=== PATIENT | female | born 1945 | race Caucasian/White ===

== ENCOUNTER 2016-11-17 11:34 | Emergency (ER) | payer MEDICARE ==
[2016-11-17 12:17] VITALS: BP 121/53
--- NOTE | 2016-11-17 12:30 | UC ---
Respiratory Complaint HPI - HPI Summary HPI Summary: 3 or 4 weeks of cough. Saw her MD, got a Z-pack, it didn't help. Then went back and was told to take cough meds, but they gave her diarrhea. Still coughing. Appetite good. No recent fever. Minimal sinus congestion. Cough is dry and hacking, keeps her awake at night, makes her throat sore. No rash. - History of Current Complaint Chief Complaint: UCRespiratory Stated Complaint: COUGH,THROAT Time Seen by Provider: 11/17/16 12:20 Hx Obtained From: Patient Hx Last Menstrual Period: many years Onset/Duration: Gradual Onset, Lasting Weeks - 4 Timing: Constant Severity Initially: Mild Severity Currently: Moderate Character: Cough: Nonproductive Aggravating Factors: Recumbent Position Associated Signs And Symptoms: Positive: URI, Hoarseness. Negative: Dyspnea, Fever, Chills, Pleuritic Chest Pain, Wheezing, Hemoptysis, Nasal Congestion, Sinus Discomfort - Risk Factors Pulmonary Embolism Risk Factors: Negative Cardiac Risk Factors: Negative Pseudomonas Risk Factors: Negative Tuberculosis Risk Factors: Negative - Allergies/Home Medications Allergies/Adverse Reactions: Allergies Allergy/AdvReac Type Severity Reaction Status Date / Time Oxybutynin Allergy Rash Verified 11/17/16 12:17 Sulfamethoxazole Allergy Rash Verified 11/17/16 12:17 w/Trimethoprim [From Bactrim] PMH/Surg Hx/FS Hx/Imm Hx Endocrine History Of: Reports: Diabetes Cardiovascular History Of: Reports: Cardiac Disorders - ? [place], Hypertension Respiratory History Of: Reports: COPD, Asthma - Surgical History Surgical History: Yes Surgery Procedure, Year, and Place: HYSTERECTOMY 2009. BLADDER REPAIR X 3 AND MESH 1983, 2009 AND 2011. LEFT THUMB TENDON REPAIR - Family History Known Family History: Positive: Renal Disease - mom positive for kidney stones - Social History Occupation: Retired Lives: With Family Alcohol Use: None Substance Use Type: None Smoking Status (MU): Former Smoker Type: Cigarettes Length of Time of Smoking/Using Tobacco: 20 years Have You Smoked in the Last Year: No - Immunization History Most Recent Influenza Vaccination: 08-01-15 Review of Systems Constitutional: Negative Skin: Negative Eyes: Negative ENT: Sore Throat Respiratory: Cough Cardiovascular: Negative Gastrointestinal: Negative Genitourinary: Negative Motor: Negative Neurovascular: Negative Musculoskeletal: Negative Neurological: Negative Psychological: Negative All Other Systems Reviewed And Are Negative: Yes Physical Exam Triage Information Reviewed: Yes Appearance: Well-Appearing, No Pain Distress, Well-Nourished Vital Signs: Initial Vital Signs Temp 98.1 F 11/17/16 12:11 Pulse 71 11/17/16 12:11 Resp 20 11/17/16 12:11 BP 121/53 11/17/16 12:11 Pulse Ox 98 11/17/16 12:11 Vital Signs Reviewed: Yes Eye Exam: Normal ENT: Positive: Pharyngeal erythema - mild, Nasal congestion Respiratory Exam: Normal Respiratory: Positive: Lungs clear, Normal breath sounds, No respiratory distress, No accessory muscle use Cardiovascular Exam: Normal Musculoskeletal Exam: Normal Neurological Exam: Normal Psychological Exam: Normal Skin Exam: Normal UC Diagnostic Evaluation - Laboratory O2 Sat by Pulse Oximetry: 98 Respiratory Course/Dx - Differential Dx/Diagnosis Differential Diagnosis/HQI/PQRI: Bronchitis, Lower Resp Infection, Sinusitis Provider Diagnoses: URI Discharge - Discharge Plan Condition: Stable Disposition: HOME Prescriptions: Benzonatate CAP* [Tessalon CAP*] 100 mg PO TID PRN #20 cap PRN Reason: Cough Hydrocodone W/ Homatropine [Hydromet 5-1.5 mg/5Ml] 1 teasp PO Q6HR PRN #120 ml MDD 20ml PRN Reason: Cough Patient Education Materials: Upper Respiratory Infection (ED) Referrals: Nico Mcallister MD [Primary Care Provider] -
== END 2016-11-17 12:57 | disposition home or self-care (01) ==
LOC: UCCORT 11:34
DX: J06.9 Acute upper respiratory infection, unspecified (principal); Z87.891 Personal history of nicotine dependence; Z88.1 Allergy status to other antibiotic agents; Z88.8 Allergy status to other drugs, medicaments and biological substances
CPT/HCPCS: 99212; G0463

== ENCOUNTER 2017-06-10 10:55 | Emergency (ER) | payer MEDICARE | END 2017-06-10 13:38 | disposition left against medical advice (07) | LOC: UCCORT 10:55 | DX: N39.9 Disorder of urinary system, unspecified (principal); J34.89 Other specified disorders of nose and nasal sinuses; Z53.21 Procedure and treatment not carried out due to patient leaving prior to being seen by health care provider ==

== ENCOUNTER 2017-06-10 15:00 | Emergency (ER) | payer MEDICARE ==
[2017-06-10 16:07] VITALS: BP 111/56
--- NOTE | 2017-06-10 17:59 | UC ---
UC General HPI - HPI Summary HPI Summary: TWO WEEKS OF WORSENING SINUS PRESSURE, ON RIGHT SIDE; THREE DAYS AGO BEGAN DEVELOPING URINARY FREQUENCY, URIGENCY AND DISCOMFORT. NO FEVER. NO SOB. NO BACK PAIN. - History of Current Complaint Chief Complaint: UCGeneralIllness Stated Complaint: BLADDER,SINUS INFECTION Time Seen by Provider: 06/10/17 16:08 Hx Obtained From: Patient Hx Last Menstrual Period: many years Onset/Duration: Gradual Onset, Lasting Weeks, Worse Since - 3 DAYS Onset Severity: Mild Current Severity: Moderate Pain Intensity: 7 Associated Signs & Symptoms: Positive: Dysuria. Negative: Back Pain, Cough, Chest Pain, Dizziness, Diarrhea, Fever, Headache, Nausea, SOB, Vomiting, Wheezing, Weakness - Allergy/Home Medications Allergies/Adverse Reactions: Allergies Allergy/AdvReac Type Severity Reaction Status Date / Time Oxybutynin Allergy Rash Verified 06/10/17 16:07 Sulfamethoxazole Allergy Rash Verified 06/10/17 16:07 w/Trimethoprim [From Bactrim] PMH/Surg Hx/FS Hx/Imm Hx Previously Healthy: Yes - Surgical History Surgical History: Yes Surgery Procedure, Year, and Place: HYSTERECTOMY 2009. BLADDER REPAIR X 3 AND MESH 1983, 2009 AND 2011. LEFT THUMB TENDON REPAIR - Family History Known Family History: Positive: Renal Disease - mom positive for kidney stones - Social History Occupation: Retired Lives: With Family Alcohol Use: None Substance Use Type: None Smoking Status (MU): Former Smoker Type: Cigarettes Length of Time of Smoking/Using Tobacco: 20 years Have You Smoked in the Last Year: No - Immunization History Most Recent Influenza Vaccination: 08-01-15 Review of Systems Constitutional: Negative Skin: Negative Eyes: Negative ENT: Nasal Discharge, Sinus Congestion, Sinus Pain/Tenderness Respiratory: Negative Cardiovascular: Negative Gastrointestinal: Negative Genitourinary: Dysuria, Frequency, Urgency Motor: Negative Neurovascular: Negative Musculoskeletal: Negative Neurological: Negative Psychological: Negative Is Patient Immunocompromised?: No All Other Systems Reviewed And Are Negative: Yes Physical Exam Triage Information Reviewed: Yes Appearance: Well-Appearing, No Pain Distress, Well-Nourished Vital Signs: Initial Vital Signs Temp 98.2 F 06/10/17 16:03 Pulse 69 06/10/17 16:03 Resp 16 06/10/17 16:03 BP 111/56 06/10/17 16:03 Pulse Ox 98 06/10/17 16:03 Vital Signs Reviewed: Yes Eye Exam: Normal ENT: Positive: Hearing grossly normal, Nasal congestion, TM bulging, TM dull Dental Exam: Normal Neck exam: Normal Neck: Positive: Supple, Nontender, No Lymphadenopathy Respiratory Exam: Normal Respiratory: Positive: Chest non-tender, Lungs clear, Normal breath sounds, No respiratory distress, No accessory muscle use Cardiovascular Exam: Normal Cardiovascular: Positive: RRR, No Murmur, Pulses Normal Abdominal Exam: Normal Abdomen Description: Positive: Nontender, No Organomegaly. Negative: CVA Tenderness (R), CVA Tenderness (L) Musculoskeletal Exam: Normal Musculoskeletal: Positive: Strength Intact, ROM Intact Neurological Exam: Normal Psychological Exam: Normal Skin Exam: Normal Course/Dx - Differential Dx - Multi-Symptom Differential Diagnoses: Metabolic Abnormality, Sepsis, Urinary Tract Infection Provider Diagnoses: SINUSITIS; UTI Discharge - Discharge Plan Condition: Stable Disposition: HOME Prescriptions: Cephalexin CAP* [Keflex 500 CAP*] 500 mg PO QID #40 cap Phenazopyridine TAB* [Pyridium 100 mg TAB*] 100 mg PO TID PRN #15 tab PRN Reason: Pain Patient Education Materials: Urinary Tract Infection in Women (ED), Sinusitis ( ED) Referrals: Nico Mcallister MD [Primary Care Provider] -
== END 2017-06-10 16:41 | disposition home or self-care (01) ==
LOC: UCCORT 15:00
DX: N39.0 Urinary tract infection, site not specified (principal); J32.9 Chronic sinusitis, unspecified; Z88.2 Allergy status to sulfonamides; Z87.891 Personal history of nicotine dependence
CPT/HCPCS: 81003; 87077; 87086; 87186; 99212; G0463